=== PATIENT | female | born 1995 | race Caucasian/White ===

== ENCOUNTER 2021-12-29 22:40 | Emergency (ER) | payer OTHER ==
[~2021-12-29 22:40] MED LIST: BACLOFEN10 MG PO; COLACE100 MG PO; FEOSOL325 MG PO; LORTAB 5-325 M1 EACH PO; MOTRIN600 MG PO; NAPROXEN500 MG PO; PEPCID AC20 MG PO; PHENERGAN25 M1 PO; PRENATAL FORMU1 EACH PO
== END 2021-12-30 00:35 | disposition home or self-care (01) ==
LOC: FER 22:40
DX: G43.909 Migraine, unspecified, not intractable, without status migrainosus (principal); F17.200 Nicotine dependence, unspecified, uncomplicated
CPT/HCPCS: 99283; J0780; J1200; J1885; J7030